=== PATIENT | female | born 1930 | race Hispanic/Latino ===

== ENCOUNTER 2019-07-19 19:23 | Inpatient (IN) | payer OTHER ==
[~2019-07-19] VITALS: Ht 162.6 cm; Wt 91.6 kg
[2019-07-19 01:00] VITALS: BP 157/70
[~2019-07-19 19:23] MED LIST: ASPIRIN325 MG PO; AUGMENTIN 875-1 EACH PO; CLOPIDOGREL75 MG PO; LANTUS INJ; METFORMIN HCL500 MG PO; METOPROLOL TART50 MG PO; NOVOLOG INJ; OMEPRAZOLE20 MG PO; PREDNISOLONE ACE5 ML OP; ZESTRIL20 MG PO
[2019-07-19] MEDS ORDERED: SODIUM CHLORIDE 0.9% 1000ML 1,000 ML IV STA (19:58)
[2019-07-19] MEDS ORDERED: IBUPROFEN 400 MG TAB PO STA (19:58)
[2019-07-19] MEDS ORDERED: IBUPROFEN 600 MG TAB ONE (20:10)
[2019-07-19] MEDS ORDERED: ACETAMINOPHEN 325 MG TAB ONE (20:11)
[2019-07-19] MEDS ORDERED: CEFTRIAXONE SOD 1 GM/NS 50 ML 50 ML IV ONE (20:15)
[2019-07-19] MEDS ORDERED: IBUPROFEN 600 MG TAB PO ONE (20:15)
[2019-07-19] MEDS ORDERED: ACETAMINOPHEN 325 MG TAB PO ONE (20:15)
[2019-07-19 20:22] LABS: BASOPHILS % 0.2 % (0.0-1.0); EOSINOPHILS % 0.2 % (0.0-6.0); HEMOGLOBIN 11.3 g/dL (12.0-16.0); LYMPHOCYTES # (AUTO) 1.2 (1.0-3.2); LYMPHOCYTES % 7.1 % (18.0-39.1); MEAN CORPUSCULAR HEMOGLOBIN 28.8 pg (28-32); MEAN CORPUSCULAR HGB CONC 32.3 g/dL (31-35); MEAN CORPUSCULAR VOLUME 89.3 fL (81-99); NEUTROPHILS # (AUTO) 14.3 (2.1-6.9); PLATELET COUNT 271 x10e3/uL (140-360); RED BLOOD COUNT 3.92 x10e6/uL (3.6-5.1)
[2019-07-19 20:32] LABS: INR 0.92; PROTHROMBIN TIME 12.8 seconds (11.9-14.5)
[2019-07-19 20:33] LABS: PARTIAL THROMBOPLASTIN TIME 28.1 seconds (23.8-35.5)
[2019-07-19 20:43] LABS: ALBUMIN 3.3 g/dL (3.5-5.0); ALBUMIN/GLOBULIN RATIO 0.8 (0.8-2.0); ANION GAP 13.2 mmol/L (8-16); CALCIUM 9.3 mg/dL (8.4-10.2); CREATININE, SERUM 0.94 mg/dL (0.57-1.11); MAGNESIUM 1.7 MG/DL (1.3-2.1); POTASSIUM 4.2 mmol/L (3.5-5.1)
[2019-07-19 20:50] LABS: B-TYPE NATRIURETIC PEPTIDE2 643.9 pg/mL (0-100); CREATINE KINASE MB 2.5 ng/mL (0-5.0)
[2019-07-19 21:03] LABS: BILIRUBIN,URINE NEGATIVE (NEGATIVE); CLARITY,URINE SL CLOUDY (CLEAR); COLOR,URINE YELLOW (YELLOW); KETONES,URINE NEGATIVE (NEGATIVE); LEUKOCYTE ESTERASE ,URINE NEGATIVE (NEGATIVE); NITRITE,URINE NEGATIVE (NEGATIVE); PROTEIN,URINE DIPSTICK 2+ (NEGATIVE); URINE UROBILINOGEN 0.2 mg/dL (0.2 - 1)
[2019-07-19 21:16] LABS: BACTERIA,URINE MODERATE /HPF; EPITHELIAL CELLS,URINE FEW /LPF
[2019-07-19] MEDS ORDERED: DEXTROSE 50% SYRINGE 50 ML IV PRN (22:00)
--- NOTE | 2019-07-19 23:08 | NUR ---
PT GIVEN TURKEY SANDWICH AND DIET LEMON-SHOSHONE-PAIUTE SODA, TOLERATING WELL.
--- NOTE | 2019-07-19 23:26 | Diagnostic Imaging Report ---
EXAMINATION: CHEST SINGLE (PORTABLE) INDICATION: Sick, weak COMPARISON: Chest radiograph 07/06/2016 FINDINGS: AP view TUBES and LINES: None. LUNGS: Lungs are well inflated. Subtle increased conspicuity of lung markings. Pulmonary vascular congestion. No consolidations. PLEURA: No pleural effusion or pneumothorax. HEART AND MEDIASTINUM: Cardiac size is mildly enlarged. There are atherosclerotic calcifications within the aorta. BONES AND SOFT TISSUES: No acute osseous lesion. Soft tissues are unremarkable. Degenerative changes in the shoulders. UPPER ABDOMEN: No free air under the diaphragm. IMPRESSION: Mild cardiomegaly and pulmonary vascular congestion. Possible mild pulmonary interstitial edema. Signed by: Jacques Malone DO on 07/19/2019 11:22 PM
[2019-07-20] VITALS (8 sets, daily range): BP systolic 157–215; BP diastolic 51–91
[2019-07-20] MEDS ORDERED: ACETAMINOPHEN 325 MG TAB PO PRN (00:15)
--- NOTE | 2019-07-20 01:00 | NUR ---
PATIENT RECEIVE FROM ER. PATIENT IS AAOX3, RESP EVEN AND UNLABORED. NO ACUTE DISTRESS NOTED. PATIENT IS BLIND IN LEFT EYE. ORIENTED TO ROOM. FAMILY AT BED SIDE. TELE IN PLACE. CALL LIGHT WITHIN REACH. INSTRUCT TO CALL FOR ASSISTANCE. BED LOW/LOCKED. CONTINUE TO MONITOR CLOSELY
[2019-07-20 05:58] LABS: CREATINE KINASE MB 4.4 ng/mL (0-5.0)
[2019-07-20] MEDS: INSULIN REGULAR, HUMAN 100 UNIT/1 ML 3ML VIAL SQ SCH ×4 (07:30→20:10)
--- NOTE | 2019-07-20 07:30 | NUR ---
Received patient this morning and a/ox3, no resp distress, call light within reach and will monitor.
--- NOTE | 2019-07-20 08:12 | NUR ---
Received patient this morning and called attending and obtained treatment procedures, antibiotics, diuretics, renew home meds, will monitor.
[2019-07-20 08:26] LABS: BASOPHILS % 0.3 % (0.0-1.0); EOSINOPHILS # (AUTO) 0.1 (0.0-0.4); EOSINOPHILS % 0.5 % (0.0-6.0); HEMATOCRIT 32.8 % (34.2-44.1); HEMOGLOBIN 10.2 g/dL (12.0-16.0); LYMPHOCYTES # (AUTO) 1.3 (1.0-3.2); LYMPHOCYTES % 12.2 % (18.0-39.1); MEAN CORPUSCULAR HEMOGLOBIN 28.5 pg (28-32); MEAN CORPUSCULAR HGB CONC 31.1 g/dL (31-35); MEAN CORPUSCULAR VOLUME 91.6 fL (81-99); MONOCYTES # (AUTO) 0.8 (0.2-0.8); MONOCYTES % 7.3 % (4.4-11.3); NEUTROPHILS # (AUTO) 8.2 (2.1-6.9); NEUTROPHILS % 79.4 % (38.7-80.0); PLATELET COUNT 250 x10e3/uL (140-360); RED BLOOD COUNT 3.58 x10e6/uL (3.6-5.1); RED CELL DISTRIBUTION WIDTH 15.1 % (11.7-14.4)
[2019-07-20] MEDS ORDERED: SODIUM CHLORIDE 0.9% 250ML 250 ML ONE (08:30)
[2019-07-20 08:40] LABS: CALCIUM 8.6 mg/dL (8.4-10.2); CREATININE, SERUM 1.15 mg/dL (0.57-1.11)
[2019-07-20] MEDS ORDERED: CEFEPIME HCL 1 GM VIAL IV SCH (09:00)
[2019-07-20] MEDS ORDERED: FUROSEMIDE INJ 10 MG/ML 4 ML VIAL IV ONE (09:00)
[2019-07-20] MEDS: CEFEPIME 1GM/NS 0.9% 50 ML 50 ML IV SCH ×2 (09:18→16:30)
[2019-07-20] MEDS: METOPROLOL TARTRATE 50 MG TAB PO SCH (09:18)
[2019-07-20] MEDS: CLOPIDOGREL BISULFATE 75 MG TAB PO SCH (09:19)
[2019-07-20] MEDS: LISINOPRIL 20 MG TAB PO SCH (09:19)
[2019-07-20] MEDS: INSULIN GLARGINE 100 UNITS/ML VIAL SC SCH (09:19)
[2019-07-20 13:14] LABS: CREATINE KINASE MB 7.5 ng/mL (0-5.0)
[2019-07-20] MEDS: ENOXAPARIN 30 MG/0.3 ML SYR SC SCH (16:30)
[2019-07-20] MEDS ORDERED: HYDRALAZINE HCL 20 MG/ML VIAL IV PRN (19:45)
--- NOTE | 2019-07-20 19:45 | NUR ---
NOTIFIED DR STEWART HIGH BP. PATIENT IS ASYMPTOMATIC AT THIS TIME. NEW ORDER RECEIVED
[2019-07-20] MEDS ORDERED: NIFEDIPINE CR 30 MG TAB PO ONE (20:30)
--- NOTE | 2019-07-20 21:06 | History and Physical ---
CHIEF COMPLAINT: Dysuria, not feeling well, subjective fever. HISTORY OF PRESENT ILLNESS: An 89-year-old female comes into the emergency room with complaints of "not feeling well." She reports that her air condition at times was warm and then it was cold and she felt fevers and chills at home. She also reports questionable dysuria. No cough, no congestion. Denies chest pain or any palpitations. The patient came into the emergency room to be further evaluated and found to have a UTI on examination. Chest x-ray consistent with pulmonary edema, but no evidence of any community-acquired pneumonia. The patient was stable during my evaluation. Reviewed case with nursing staff. REVIEW OF SYSTEMS: 1. Pertinent positives: Positive dysuria and subjective fever. 2. Pertinent negatives: Denies any chest pain, palpitations, nausea, vomiting, diarrhea, hematuria, frequency, urgency, lightheadedness, dizziness, abdominal pain, headaches, shortness of breath, cough, congestion, or any other complaints. 3. The rest of the 14-point review of systems have been reviewed with the patient and are negative. ALLERGIES: NO KNOWN DRUG ALLERGIES. HOME MEDICATIONS: 1. Metformin 500 mg b.i.d. 2. NovoLog t.i.d. 3. Plavix. 4. Lisinopril. 5. Metoprolol. 6. Lantus. PAST MEDICAL HISTORY: 1. Type 2 diabetes. 2. Hypertension. 3. Morbidly obese. PAST SURGICAL HISTORY: Reports none. FAMILY HISTORY: Hypertension and diabetes. SOCIAL HISTORY: No drugs or alcohol. Does not smoke. Good social support. , has children. PHYSICAL EXAMINATION: VITAL SIGNS: Temperature is 96.3, pulse 52, respiratory rate is 19, blood pressure 162/72, pulse ox 99% on 2 L nasal cannula. GENERAL: Not in acute distress. Alert and oriented x3. Cooperative on examination. HEENT: Head; normocephalic, atraumatic. Eyes; pupils are equal, round, and reactive to light bilaterally. Extraocular movements intact bilaterally. Throat; no evidence of erythema or exudates in the posterior pharynx. Has poor dentition. NECK: Supple. Good range of motion. PULMONARY: Clear to auscultation bilaterally. No wheezing, no rales, no rhonchi, no crackles appreciated. CARDIOVASCULAR: Positive S1 and S2. No murmurs, rubs, or gallops appreciated. ABDOMEN: Soft, nondistended, and nontender to palpation. Bowel sounds present. MUSCULOSKELETAL: Strength is 5/5 throughout. No evidence of any muscle deficits on examination. No weakness appreciated. NEUROLOGIC: Cranial nerve II through XII are grossly intact. No evidence of any neurological deficits on exam. SKIN: Intact. Warm to touch. Good cap refill. PSYCHIATRIC: Normal affect and mood. EXTREMITIES: No edema. Good range of motion throughout. LABORATORY FINDINGS: White count 10.3, hemoglobin 10.2, hematocrit 32, and platelets of 250. Coagulation, PT 12, INR 0.92, PTT 28. Chemistries: Sodium 138, potassium 4, chloride 102, bicarb 27, anion gap of 13, BUN 25, and creatinine 1.1, glucose 162. Calcium is 8.6. LFTs are normal x3. Lipase level was 15. Albumin was 3.3. Urinalysis concerning for UTI. MICROBIOLOGY: Urine culture, gram-negative bacilli. Blood cultures x2, no growth to date. Chest x-ray shows mild cardiomegaly with pulmonary vascular congestion, possible mild pulmonary interstitial edema. IMPRESSION: 1. Sepsis with leukocytosis and fever 103.6, likely due to underlying urinary tract infection. 2. Type 2 diabetes. 3. Morbid obesity. 4. Hypertension. PLAN: At this time, blood and urine cultures collected. IV antibiotics. Resume same home medications include antihypertensives. Start on insulin sliding scale, long-acting Lantus. Diabetic diet. Her vitals are stable. Get a.m. labs. Monitor overnight and follow the cultures. MD MARÍA ELENA Teixeira/MODL /[id number]
[2019-07-21] VITALS (8 sets, daily range): BP systolic 110–164; BP diastolic 54–90
[2019-07-21] MEDS: CEFEPIME 1GM/NS 0.9% 50 ML 50 ML IV SCH ×3 (01:24→17:08)
[2019-07-21] MEDS: INSULIN REGULAR, HUMAN 100 UNIT/1 ML 3ML VIAL SQ SCH ×4 (07:30→20:45)
[2019-07-21] MEDS: CLOPIDOGREL BISULFATE 75 MG TAB PO SCH (08:28)
[2019-07-21] MEDS: LISINOPRIL 20 MG TAB PO SCH (08:29)
[2019-07-21] MEDS: METOPROLOL TARTRATE 50 MG TAB PO SCH (08:29)
[2019-07-21] MEDS: NIFEDIPINE CR 30 MG TAB PO SCH (08:29)
[2019-07-21] MEDS: INSULIN GLARGINE 100 UNITS/ML VIAL SC SCH (09:21)
--- NOTE | 2019-07-21 16:27 | NUR ---
Patient seen by attending and orders in place, home health eval for PT, PT orders in place, Lasix x1 dose, wean off oxygen if not able to tolerate, complete O2 eval but will monitor. Patient now on RA, will monitor and no c/o pains.
[2019-07-21] MEDS ORDERED: FUROSEMIDE INJ 10 MG/ML 2 ML VIAL IV ONE (17:00)
[2019-07-21] MEDS: ENOXAPARIN 30 MG/0.3 ML SYR SC SCH (17:08)
--- NOTE | 2019-07-21 19:02 | NUR ---
Patient dasat on her oxygen on RA to 85, oxygen 2L re-applied and at 95%, orders in place for home O2 eval.
[2019-07-22] VITALS (9 sets, daily range): BP systolic 127–153; BP diastolic 63–74
[2019-07-22] MEDS: CEFEPIME 1GM/NS 0.9% 50 ML 50 ML IV SCH ×3 (01:16→17:16)
[2019-07-22 05:11] LABS: BASOPHILS % 0.3 % (0.0-1.0); EOSINOPHILS # (AUTO) 0.2 (0.0-0.4); EOSINOPHILS % 2.1 % (0.0-6.0); HEMATOCRIT 33.4 % (34.2-44.1); HEMOGLOBIN 10.6 g/dL (12.0-16.0); LYMPHOCYTES # (AUTO) 1.3 (1.0-3.2); LYMPHOCYTES % 13.7 % (18.0-39.1); MEAN CORPUSCULAR HEMOGLOBIN 28.3 pg (28-32); MEAN CORPUSCULAR HGB CONC 31.7 g/dL (31-35); MEAN CORPUSCULAR VOLUME 89.1 fL (81-99); MONOCYTES % 10.6 % (4.4-11.3); NEUTROPHILS % 72.9 % (38.7-80.0); PLATELET COUNT 250 x10e3/uL (140-360); RED BLOOD COUNT 3.75 x10e6/uL (3.6-5.1); RED CELL DISTRIBUTION WIDTH 14.7 % (11.7-14.4)
[2019-07-22 05:29] LABS: ANION GAP 11.8 mmol/L (8-16); CREATININE, SERUM 0.92 mg/dL (0.57-1.11); POTASSIUM 3.8 mmol/L (3.5-5.1)
[2019-07-22] MEDS: INSULIN REGULAR, HUMAN 100 UNIT/1 ML 3ML VIAL SQ SCH ×4 (07:30→21:20)
[2019-07-22] MEDS: NIFEDIPINE CR 30 MG TAB PO SCH (08:17)
[2019-07-22] MEDS: CLOPIDOGREL BISULFATE 75 MG TAB PO SCH (08:17)
[2019-07-22] MEDS: METOPROLOL TARTRATE 50 MG TAB PO SCH (08:17)
[2019-07-22] MEDS: LISINOPRIL 20 MG TAB PO SCH (08:17)
[2019-07-22] MEDS: INSULIN GLARGINE 100 UNITS/ML VIAL SC SCH (08:18)
--- NOTE | 2019-07-22 08:48 | Diagnostic Imaging Report ---
EXAMINATION: CHEST SINGLE (PORTABLE) INDICATION: Shortness of breath COMPARISON: Multiple prior chest radiographs, most recently of 07/19/2019 FINDINGS: LINES/TUBES:EKG leads overlie the chest. LUNGS:The lung volumes are low. There is perihilar fullness and indistinctness of the pulmonary vasculature. Patchy opacity at the left lung base. PLEURA:No pleural effusion or pneumothorax. MEDIASTINUM:Cardiomediastinal silhouette is stably enlarged. BONES/SOFT TISSUES:No acute osseous injury. ABDOMEN:No free air under the diaphragm. IMPRESSION: Mild pulmonary edema and cardiomegaly, not significantly changed from 07/19/2019. Patchy opacity at the left lung base most likely represents subsegmental atelectasis however superimposed aspiration or pneumonia could have a similar appearance in the proper clinical setting. Signed by: Guerline Galdamez MD on 07/22/2019 8:45 AM
--- NOTE | 2019-07-22 11:30 | NUR ---
Cm to pt bedside to discuss order for home health. Pt stated she would prefer for CM to return when her gets here. CM's business card given to pt. She will call when her arrives.
[2019-07-22] MEDS ORDERED: POTASSIUM CHLORIDE 20 MEQ TAB CR PO ONE (13:41)
[2019-07-22] MEDS ORDERED: FUROSEMIDE INJ 10 MG/ML 2 ML VIAL IV ONE (13:45)
--- NOTE | 2019-07-22 14:04 | Progress Note ---
DATE: 07/22/2019 Medicine Progress Note SUBJECTIVE: The patient is doing well today with no complaints. The only issue is that she was desatting on with a low oxygen saturation. It seems like she needs home O2. I will go ahead and consult with Pulmonary to further evaluate and treat. PHYSICAL EXAMINATION: VITAL SIGNS: Temperature 97, pulse 61, respiratory rate is 21, blood pressure 142/65, and pulse ox 98% on 2 L nasal cannula. GENERAL: Not in acute distress. Alert and oriented x3. Cooperative on examination. HEENT: Head; normocephalic, atraumatic. Eyes; pupils are equal, round, and reactive to light bilaterally. Extraocular movements intact bilaterally. Throat; no evidence of erythema or exudates in the posterior pharynx. Has poor dentition. NECK: Supple. Good range of motion. PULMONARY: Clear to auscultation bilaterally. No wheezing, no rales, no rhonchi, no crackles appreciated. CARDIOVASCULAR: Positive S1 and S2. No murmurs, rubs, or gallops appreciated. ABDOMEN: Soft, nondistended, and nontender to palpation. Bowel sounds present. MUSCULOSKELETAL: Strength is 5/5 throughout. No evidence of any muscle deficits on examination. No weakness appreciated. NEUROLOGIC: Cranial nerves II through XII grossly intact. No evidence of any neurological deficits on exam. SKIN: Intact. Warm to touch. Good cap refill. PSYCHIATRIC: Normal affect and mood. EXTREMITIES: No edema. Good range of motion throughout. LABORATORY FINDINGS: Show white count 9.6, hemoglobin 10.6, hematocrit is 33, and platelets of 250. Chemistry; sodium 136, potassium 3.8, chloride 100, bicarb 28, anion gap of 11, BUN is 21, creatinine is 0.92, glucose is 100, and calcium 9. MICROBIOLOGY: Urine culture noted to be E. coli, sensitive to cephalosporins, in which she will be discharged eventually on Omnicef. Blood cultures, no growth to date greater than 48 hours. IMAGING STUDIES: Chest x-ray from this morning shows patchy opacity at the left lung base, most likely represent subsegmental atelectasis or superimposed aspiration pneumonia, could have a similar appearance in appropriate clinical setting. IMPRESSION: 1. Sepsis with leukocytosis with fever, likely due to underlying urinary tract infection. 2. Type 2 diabetes. 3. Morbid obesity. 4. Hypertension. 5. Oxygen desaturations. PLAN: At this time, blood cultures were negative to date. Urine culture noted. We will continue with IV antibiotics. In terms of her hypoxia, on 2 L nasal cannula and unable to wean off, we will go ahead and get a Pulmonary consultation to come further evaluate and treat. It could be from maybe underlying pneumonia as a possibility because chest x-ray comments that, but she is on IV antibiotics. No fever now. Her white count is improved. We will get a.m. labs. Monitor the cultures. Get final recommendations by Pulmonary once evaluated by her, otherwise discharge in the next 1 to 2 days if she is off oxygen soon. We may even need to arrange for oxygen for home. MD MARÍA ELENA Teixeira/DANELLE /[id number]
--- NOTE | 2019-07-22 15:40 | NUR ---
Spoke to pt, pt's and pt's daughter at bedside regarding home health order. Pt directs CM to speak to her daughter Lesly Chavez [phone]. Pt is agreeable to home health. States to use any company that takes her insurance. Choice letter signed for [facility] and [facility]. Signed letter placed in chart. Copy to pt's daughter. Discussed IMM letter. They verbalized understanding. Signed copy placed in chart. Copy to daughter. Also spoke to pt and family regarding possible need for home oxygen. Home O2 eval was done today and pt O2 sat dropped to 85% on exertion. Pending pulmonary MD's round for qualifying diagnosis for home O2. In case home O2 needed on discharge, choice letter signed for [facility] and placed in front of chart. Copy to pt's daughter.
[2019-07-22] MEDS: AZITHROMYCIN 500MG/NS 250 ML 250 ML IV SCH (16:01)
--- NOTE | 2019-07-22 16:46 | Diagnostic Imaging Report ---
EXAM: CT Chest WITHOUT intravenous contrast 07/22/2019 1:32 PM INDICATION: Cough, concern for pneumonia COMPARISON: Multiple chest radiographs most recently of 07/22/2019 TECHNIQUE: Chest was scanned utilizing a multidetector helical scanner from the lung apex through the level of the adrenal glands without administration of IV contrast. Coronal and sagittal reformations were obtained. Routine protocol was performed. IV CONTRAST: None RADIATION DOSE: Total DLP: 1494.5 mGy*cm. Dose modulation, iterative reconstruction, and/or weight based adjustment of the mA/kV was utilized to reduce the radiation dose to as low as reasonably achievable. COMPLICATIONS: None FINDINGS: LINES/ TUBES: None. LUNGS AND AIRWAYS: The central airways are patent. The lungs are hyperinflated. Mild diffuse bronchial wall thickening. Most notably in the lower lobes and right middle lobe, there is predominantly peripheral increased reticulation and scattered groundglass opacities with some areas of immediate subpleural sparing. This persists on inspiratory and expiratory views and on the prone images. No honeycombing. No focal consolidation. Mild interlobular septal thickening can be seen with mild interstitial edema. No substantial air trapping seen on the current expiratory views. PLEURA: The pleural spaces are clear. HEART AND MEDIASTINUM: The thyroid gland is normal. No supraclavicular, axillary, mediastinal, or hilar lymphadenopathy. Multichamber cardiomegaly. Extensive mitral valve calcifications. Athetotic calcifications of the coronary arteries and aorta and major branches. No pericardial effusion. UPPER ABDOMEN: Limited noncontrast enhanced images of the upper abdomen demonstrate no focal abnormality in the partially visualized liver, spleen, kidneys, adrenals, or pancreas. Marked atherosclerotic calcifications of the mesenteric branches most notably the splenic artery. BONES: The visualized bony thorax is within normal limits. SOFT TISSUES: No acute osseous injury. No suspicious lytic or blastic lesions. Mild degenerative changes of the visualized spine. IMPRESSION: Hyperinflated lungs. Bilateral lower lobe predominantly peripheral reticulations and scattered groundglass opacities with some areas of immediate subpleural sparing are suggestive of interstitial lung disease in an NSIP pattern. Mild interstitial pulmonary edema. Multichamber cardiomegaly. Atherosclerotic arterial calcifications including of the coronary arteries. Signed by: Guerline Galdamez MD on 07/22/2019 4:43 PM
[2019-07-22] MEDS ORDERED: SODIUM CHLORIDE 0.9% 250ML 250 ML ONE (17:12)
[2019-07-22] MEDS: ENOXAPARIN 30 MG/0.3 ML SYR SC SCH (17:16)
--- NOTE | 2019-07-22 20:03 | NUR ---
Referral for home health faxed to [facility] at [phone]. .
--- NOTE | 2019-07-22 23:08 | NUR ---
Pulmonary [id number] Thanks
[2019-07-23] VITALS (9 sets, daily range): BP systolic 128–158; BP diastolic 60–98
[2019-07-23] MEDS: CEFEPIME 1GM/NS 0.9% 50 ML 50 ML IV SCH ×3 (00:11→16:14)
--- NOTE | 2019-07-23 06:58 | Consultation ---
DATE OF CONSULTATION: 07/22/2019 Pulmonary Medicine Consult Referring physician REASON FOR REFERRAL: Hypoxemia. HISTORY OF PRESENT ILLNESS: Ms. Freedman is a pleasant 89-year-old female with hypoxemia. The patient presented to the emergency room on July 19, 2019. She is not feeling well and have subjective fevers. Along the emergency room findings, the white count was [address], urinalysis with 6 to 10 white cells. Eventually, blood cultures were negative at 72 hours x2, but urine culture grew a partially sensitive E coli greater than 100,000 colony-forming units. The patient additionally had a chest x-ray with scant venous hyperemia versus pneumonitis. The patient denies any phlegm. Denies any extensive coughing. There is no history of any asthma, no allergies. There is mild GERD. She is not on any home oxygen. Now using chronic inhalers. The patient with a 2-house exercise tolerance. Repeat chest x-ray demonstrated persistent infiltrates. Room air FiO2 with saturation 85% and I am consulted. PAST MEDICAL HISTORY: Diabetes, hypertension, mild GERD, obese, BMI 34.9. Additional coronary artery disease, status post 2 stents. MEDICATIONS: Medication list reviewed per the chart record. ALLERGIES: NO KNOWN DRUG ALLERGIES. SOCIAL HISTORY: No smoking. No drinking. No drugs. The patient worked in agriculture for many years and currently lives with her and still remains independent in everything except she never really drove a car. FAMILY HISTORY: Noncontributory. REVIEW OF SYSTEMS: GENERAL: No weight changes. OPHTHALMOLOGIC: No double vision. ENT: No frequent nosebleeds. ENDOCRINE: No thyroid disease. CARDIAC: No heart attack stated. PULMONARY: There is no COPD. GI: No constipation. : No blood in the urine. DERMATOLOGIC: No rash. MUSCULOSKELETAL: There is mild arthritis. NEUROLOGIC: No seizures. HEMATOLOGIC: There is no lupus. PHYSICAL EXAMINATION: VITAL SIGNS: The patient is afebrile with the highest temperature on admit was 103.6. HEENT: Normocephalic, atraumatic. GENERAL: comfortable in bed, talking. NECK: Supple. Throat midline. LUNGS: Bilateral air entry, limited effort. CARDIAC: Regular. No murmurs, rubs, or gallops. ABDOMINAL: Soft and nontender. EXTREMITIES: No clubbing. No cyanosis. No edema. INTEGUMENT: No rash. No purpura. LABORATORY DATA: Include white count come down to 10, hematocrit 33, platelets 250. Chemistry: Potassium 4.2, BUN 21, creatinine 0.94. Lactic acid 7.7, magnesium 1.7. LFTs mostly unremarkable with albumin 3.3 and globulin 3.9. IMPRESSION AND PLAN: 1. Abnormal chest radiography, ground-glass interstitial opacities and hyperemia. Possible fluid overload, BNP 644. 2. Bilateral pulmonary opacities, possible pneumonia. However, timeline for possible pneumonia is indiscernible based on the history that she gave. 3. Febrile syndrome, sepsis. 4. Urinary tract infection. 5. Diabetes. 6. Morbid obesity. 7. Hypertension. 8. Mild gastroesophageal reflux disease. 9. Hypoxemia. As the patient had Lasix yesterday without substantial improvement in radiography, there is substantial chance of pneumonia being present. The patient has no timeline that we can tell from her history. Therefore, we will check a CT chest on early basis to try to clarify. Otherwise, aggressive PT and OT. Oxygen supplement as needed. Antibiotics will be extended to appropriate for pneumonia as well as UTI. Continue to treat GERD, which she reports doing now. Bronchodilators as needed. Thank you very much, Dr. Amaral for allowing me the chance to participate in the care of Ms. Freedman. Please do not hesitate to contact me if I can help in any way. MD TORREY Mcmanus/DANELLE /[id number]
[2019-07-23] MEDS: INSULIN REGULAR, HUMAN 100 UNIT/1 ML 3ML VIAL SQ SCH ×4 (07:30→20:22)
[2019-07-23] MEDS: METOPROLOL TARTRATE 50 MG TAB PO SCH (08:08)
[2019-07-23] MEDS: MULTIVITAMINS/MINERALS TAB PO SCH (08:08)
[2019-07-23] MEDS: CLOPIDOGREL BISULFATE 75 MG TAB PO SCH (08:08)
[2019-07-23] MEDS: LISINOPRIL 20 MG TAB PO SCH (08:08)
[2019-07-23] MEDS: INSULIN GLARGINE 100 UNITS/ML VIAL SC SCH (08:09)
[2019-07-23] MEDS: NIFEDIPINE CR 30 MG TAB PO SCH (08:09)
[2019-07-23] MEDS: AZITHROMYCIN 500MG/NS 250 ML 250 ML IV SCH (12:39)
--- NOTE | 2019-07-23 14:26 | Progress Note ---
DATE: 07/23/2019 Medicine Progress Note SUBJECTIVE: The patient is doing well today with no other complaints. I did discuss the plan of care with the patient's at bedside. She still requires oxygen at bedside. I did review the CT findings with the and the patient at bedside. PHYSICAL EXAMINATION: VITAL SIGNS: Temperature 96.9, pulse 69, respiratory rate is 19, blood pressure is 132/63, and pulse ox 99% on 2 L nasal cannula. GENERAL: Not in acute distress. Alert and oriented x3. Cooperative on examination. HEENT: Head; normocephalic, atraumatic. Eyes; pupils are equal, round, and reactive to light bilaterally. Extraocular movements intact bilaterally. Throat; no evidence of erythema or exudates in the posterior pharynx. Has poor dentition. NECK: Supple. Good range of motion. PULMONARY: Clear to auscultation bilaterally. No wheezing, no rales, no rhonchi, no crackles appreciated. CARDIOVASCULAR: Positive S1 and S2. No murmurs, rubs, or gallops appreciated. ABDOMEN: Soft, nondistended, and nontender to palpation. Bowel sounds present. MUSCULOSKELETAL: Strength is 5/5 throughout. No evidence of any muscle deficits on examination. No weakness appreciated. NEUROLOGIC: Cranial nerves II through XII grossly intact. No evidence of any neurological deficits on exam. SKIN: Intact. Warm to touch. Good cap refill. PSYCHIATRIC: Normal affect and mood. EXTREMITIES: No edema. Good range of motion throughout. LABORATORY FINDINGS: Show white count 9.6, hemoglobin 10.6, hematocrit is 33, and platelets of 250. Chemistries reviewed and stable. IMAGE STUDIES: CT chest with IV contrast: Results show bilateral lower lobe predominant peripheral reticulations and scattered ground-glass opacities with some areas of intermediate subpleural sparing are suggestive of interstitial lung disease in an NSIP pattern. There is also mild interstitial pulmonary edema. Multi chamber cardiomegaly. IMPRESSION: 1. Sepsis with leukocytosis with fever, likely due to underlying urinary tract infection. 2. Probably community-acquired pneumonia. 3. Hypoxia secondary to presumed to be interstitial lung disease. 4. Type 2 diabetes. 5. Morbid obesity. 6. Hypertension. PLAN: At this time, urine cultures were noted, on IV antibiotics. IV azithromycin added by Pulmonary for concerns for community-acquired pneumonia. We will get morning labs. Pulmonary is following as well. CT chest, IV contrast noted, concerns for underlying interstitial lung disease, but unknown etiology. Immunology and serologies have been ordered by Pulmonary. I did discuss the plan of care with the patient, the patient's , and nursing staff. We are awaiting for home O2. Likely if the oxygen is in range and cleared by Pulmonary, she can be discharged home tomorrow with outpatient followup with the telephone order clerk. The patient will be discharged on oral antibiotics as well. Otherwise, the patient is doing well, stable at baseline with no other complaints. I answered all the questions what the patient and the patient's had. They verbalized understanding and agreed with plan of care. MD MARÍA ELENA Teixeira/DANELLE /[id number]
[2019-07-23] MEDS: ENOXAPARIN 30 MG/0.3 ML SYR SC SCH (16:14)
--- NOTE | 2019-07-23 19:18 | NUR ---
Bedside report and walking rounds complete. Pt A&O, resting in bed and in no apparent distress. Pt on O2 2L NC and tele. All safety measures ensured and pt call [place] near. Pt is legally blind in left eye. Pt advised to call for assistance and will check on pt periodically for anything needed. Pt family at bedside.
--- NOTE | 2019-07-23 23:51 | NUR ---
PULMONARY MEDICINE DATE OF ENCOUNTER: 07/23/2019 SUBJECTIVE: Patient is able to mobilize today. Her breathing is stable. She still on oxygen per nasal cannula. I discussed CT findings with patient, , and attending. REVIEW OF SYSTEMS: nO HEADACHES, NO BLEEDING PHYSICAL EXAMINATION: VITAL SIGNS: reviewed per electronic record. HEENT: Normocephalic, atraumatic. GENERAL: comfortable in bed, talking. NECK: Supple. Throat midline. LUNGS: Bilateral air entry, limited effort. CARDIAC: Regular. No murmurs, rubs, or gallops. ABDOMINAL: Soft and nontender. EXTREMITIES: No clubbing. No cyanosis. No edema. INTEGUMENT: No rash. No purpura. LABORATORY DATA: 2.8 potassium, BUN 21, creatinine 0.92. 9.6 white count, 33 hematocrit, 250 platelets. IMPRESSION AND PLAN: 1. Abnormal chest radiography, bilateral mild subpleural interstitial reticular opacities/nodules. Possible old viral pneumonia. Cannot rule out active interstitial lung disease syndrome (NSIP), old environmental exposures, other. 2. Febrile syndrome, sepsis. Suggested UTI. No rai pneumonia suggested, at most could be a URI 4. Urinary tract infection. 5. Diabetes. 6. Morbid obesity. 7. Hypertension. 8. Mild gastroesophageal reflux disease. 9. Hypoxemia. home oxygen evaluation Mobilize the patient, PT/OT Patient will need outpatient pulmonary function testing History requires intermittent computed tomography evaluations of chest, Outpatient Bronchodilators as needed. Thank you very much, Dr. Amaral for allowing me the chance to participate in the care of Ms. Freedman. Please do not hesitate to contact me if I can help in any way.
[2019-07-24] VITALS (7 sets, daily range): BP systolic 138–162; BP diastolic 56–86
[2019-07-24] MEDS: CEFEPIME 1GM/NS 0.9% 50 ML 50 ML IV SCH ×3 (00:41→16:38)
[2019-07-24 06:41] LABS: BASOPHILS # (AUTO) 0.1 (0.0-0.1); BASOPHILS % 0.7 % (0.0-1.0); EOSINOPHILS # (AUTO) 0.4 (0.0-0.4); EOSINOPHILS % 4.7 % (0.0-6.0); HEMATOCRIT 33.3 % (34.2-44.1); HEMOGLOBIN 10.3 g/dL (12.0-16.0); LYMPHOCYTES # (AUTO) 1.4 (1.0-3.2); MEAN CORPUSCULAR HEMOGLOBIN 28.4 pg (28-32); MEAN CORPUSCULAR HGB CONC 30.9 g/dL (31-35); MEAN CORPUSCULAR VOLUME 91.7 fL (81-99); MONOCYTES # (AUTO) 0.9 (0.2-0.8); MONOCYTES % 12.3 % (4.4-11.3); NEUTROPHILS # (AUTO) 4.9 (2.1-6.9); PLATELET COUNT 282 x10e3/uL (140-360); RED BLOOD COUNT 3.63 x10e6/uL (3.6-5.1); RED CELL DISTRIBUTION WIDTH 14.5 % (11.7-14.4)
[2019-07-24 07:04] LABS: ANION GAP 10.9 mmol/L (8-16); CREATININE, SERUM 0.98 mg/dL (0.57-1.11); POTASSIUM 4.9 mmol/L (3.5-5.1)
--- NOTE | 2019-07-24 07:05 | NUR ---
Bedside report/Walking rounds complete with day shift RN.
[2019-07-24] MEDS: INSULIN REGULAR, HUMAN 100 UNIT/1 ML 3ML VIAL SQ SCH ×4 (07:30→20:40)
[2019-07-24] MEDS: CLOPIDOGREL BISULFATE 75 MG TAB PO SCH (08:12)
[2019-07-24] MEDS: LISINOPRIL 20 MG TAB PO SCH (08:12)
[2019-07-24] MEDS: NIFEDIPINE CR 30 MG TAB PO SCH (08:12)
[2019-07-24] MEDS: METOPROLOL TARTRATE 50 MG TAB PO SCH (08:12)
[2019-07-24] MEDS: MULTIVITAMINS/MINERALS TAB PO SCH (08:12)
[2019-07-24] MEDS: INSULIN GLARGINE 100 UNITS/ML VIAL SC SCH (09:00)
--- NOTE | 2019-07-24 09:14 | NUR ---
Received communication thru fax from Neisha Castillo from [facility] that they are unable to accept pt. Home Health referral faxed to [facility] Evelyn Landers with [facility] was notified of referral.
--- NOTE | 2019-07-24 12:35 | Progress Note ---
DATE: 07/24/2019 Medicine Progress Note SUBJECTIVE: The patient is doing well today with no complaints. We are now waiting for home O2 as she really needs it. She desaturates without oxygen. She is oxygen dependent now due to her underlying interstitial lung disease, it seems based on imaging studies. PHYSICAL EXAMINATION: VITAL SIGNS: Temperature is 98.2, pulse 74, respiratory rate is 20, blood pressure is 150/64, pulse ox is 100% on 2 L nasal cannula. GENERAL: Not in acute distress. Alert and oriented x3. Cooperative on examination. HEENT: Head; normocephalic, atraumatic. Eyes; pupils are equal, round, and reactive to light bilaterally. Extraocular movements are intact bilaterally. Throat; no evidence of erythema or exudates in the posterior pharynx. Has poor dentition. NECK: Supple. Good range of motion. PULMONARY: Clear to auscultation bilaterally. No wheezing, no rales, no rhonchi, no crackles appreciated. CARDIOVASCULAR: Positive S1 and S2. No murmurs, rubs, or gallops appreciated. ABDOMEN: Soft, nondistended, and nontender to palpation. Bowel sounds present. MUSCULOSKELETAL: Strength is 5/5 throughout. No evidence of any muscle deficits on examination. No weakness appreciated. NEUROLOGIC: Cranial nerves II through XII grossly intact. No evidence of any neurological deficits on exam. SKIN: Intact. Warm to touch. Good cap refill. PSYCHIATRIC: Normal affect and mood. EXTREMITIES: No edema. Good range of motion throughout. LABORATORY DATA: Lab findings show white count 7.6, hemoglobin 10.2, hematocrit 33, platelets of 282. Chemistries reviewed and stable. IMPRESSION: 1. Sepsis with leukocytosis with fever secondary to underlying urinary tract infection-resolved. 2. Community-acquired pneumonia. 3. Presumed interstitial lung disease. 4. Type 2 diabetes. 5. Morbid obesity. 6. Hypertension. PLAN: At this time, urine cultures were noted, which is sensitive to the IV antibiotic she is currently on. She is on IV azithromycin and Rocephin for Pulmonary recommendations. We are now working on home O2, once arranged the patient can be discharged to home. She can follow up with Pulmonary as an outpatient for further management and evaluation in relation to her likely new diagnosis of interstitial lung disease. Otherwise, we will continue with same plan of care. Monitor closely. Discussed with nursing staff. MD MARÍA ELENA Teixeira/DANELLE /[id number]
--- NOTE | 2019-07-24 12:52 | NUR ---
Home o2 eval was redone. Pt dropped to 87% on exertion. CM called and spoke to Rafael with [facility]. He states they are not in network. BRYCE called and spoke to Juan with [facility] who states that he can deliver portables today but will not be able to deliver concentrator since their office is closed due to the weather. BRYCE called and spoke to Ilana in the oxygen department at [facility]. She states that they would be able to deliver portables and concentrator today. Spoke to pt and at bedside and informed them that we need to set up home oxygen for pt. Informed them regarding [facility] and [facility] and they are fine with using [facility]. Choice letter signed and placed in chart. Copy to pt. Referral was faxed to [phone] .
[2019-07-24] MEDS: AZITHROMYCIN 500MG/NS 250 ML 250 ML IV SCH (15:25)
--- NOTE | 2019-07-24 15:43 | NUR ---
Spoke with Evelyn with [facility]. Pt has been accepted by [facility] but still pending insurance authorization.
[2019-07-24] MEDS: ENOXAPARIN 30 MG/0.3 ML SYR SC SCH (16:38)
--- NOTE | 2019-07-24 17:06 | NUR ---
Portable concentrator has been delivered to pt's bedside. Message left for Dr. Amaral informing him.
--- NOTE | 2019-07-24 17:35 | NUR ---
CM have not received response from Dr. Amaral regarding possible discharge. CM escalated to director medical writing Dr. España. Also informed CM director Norma Motta who left message for Dr. Amaral.
--- NOTE | 2019-07-24 18:26 | NUR ---
Pt is not able to have ride to be picked up in order to go home this evening. MD aware of pt not having ride. Will follow up with pt in the morning.
--- NOTE | 2019-07-24 19:20 | NUR ---
Patient received lying in bed. at bedside. AAO x 3. Patient had no complaints of pain. Respirations even and non-labored on 2L NC. Patient is legally blind in left eye. Safety measures implemented. Patient instructed to call for assistance when needed. Call light within reach.
--- NOTE | 2019-07-24 21:58 | NUR ---
PULMONARY MEDICINE DATE OF ENCOUNTER: 07/24/2019 SUBJECTIVE: Home oxygen evaluation done Order made Patient with stable symptoms d/w patient, d/w REVIEW OF SYSTEMS: No epistaxis, no double vision PHYSICAL EXAMINATION: VITAL SIGNS: reviewed per electronic record. HEENT: Normocephalic, atraumatic. GENERAL: comfortable in bed, talking. NECK: Supple. Throat midline. LUNGS: Bilateral air entry, limited effort. CARDIAC: Regular. No murmurs, rubs, or gallops. ABDOMINAL: Soft and nontender. EXTREMITIES: No clubbing. No cyanosis. No edema. INTEGUMENT: No rash. No purpura. LABORATORY DATA: 4.9 k, cr .098. wbc 7.6. hct 33. plt 282 IMPRESSION AND PLAN: 1. Abnormal chest radiography, bilateral mild subpleural interstitial reticular opacities/nodules. Possible old viral pneumonia. Cannot rule out active interstitial lung disease syndrome (NSIP), old environmental exposures, other. 2. Febrile syndrome, sepsis. UTI. No rai pneumonia suggested, at most could be a URI 4. Urinary tract infection. 5. Diabetes. 6. Morbid obesity. 7. Hypertension. 8. Mild gastroesophageal reflux disease. 9. Hypoxemia. home oxygen [id number] Mobilize the patient, PT/OT Patient will need outpatient pulmonary function testing History requires intermittent computed tomography evaluations of chest, Outpatient Bronchodilators as needed. Thank you very much, Dr. Amaral for allowing me the chance to participate in the care of Ms. Freedman. Please do not hesitate to contact me if I can help in any way.
[2019-07-25] VITALS: BP 155/80
[2019-07-25] MEDS: CEFEPIME 1GM/NS 0.9% 50 ML 50 ML IV SCH ×2 (01:56→08:56)
[2019-07-25 04:00] VITALS: BP 169/83
--- NOTE | 2019-07-25 07:09 | NUR ---
Walking rounds done. Patient resting comfortably. Shift report given to oncoming nurse.
--- NOTE | 2019-07-25 07:15 | NUR ---
RCD PT AT BED PT IS ALERT AND ORIENTED PT RESTING ON BEDIV PATENT BY SALINE FLUSH BED LOW AND LOCKED CALL LIGHT IN REACH
[2019-07-25] MEDS: INSULIN REGULAR, HUMAN 100 UNIT/1 ML 3ML VIAL SQ SCH (07:30)
[2019-07-25 07:32] VITALS: BP 185/87
[2019-07-25] MEDS: METOPROLOL TARTRATE 50 MG TAB PO SCH (08:57)
[2019-07-25] MEDS: CLOPIDOGREL BISULFATE 75 MG TAB PO SCH (08:58)
[2019-07-25] MEDS: MULTIVITAMINS/MINERALS TAB PO SCH (08:58)
[2019-07-25] MEDS: LISINOPRIL 20 MG TAB PO SCH (08:58)
[2019-07-25] MEDS: INSULIN GLARGINE 100 UNITS/ML VIAL SC SCH (08:59)
[2019-07-25] MEDS: NIFEDIPINE CR 30 MG TAB PO SCH (08:59)
[2019-07-25 09:00] VITALS: BP 185/87
[2019-07-25 09:45] VITALS: BP 160/85
[2019-07-25] MEDS ORDERED: AZITHROMYCIN250 MG PO (10:07)
[2019-07-25] MEDS ORDERED: PROCARDIA XL30 MG (10:36)
[2019-07-25] MEDS ORDERED: CEFDINIR300 MG PO (10:38)
--- NOTE | 2019-07-25 10:55 | NUR ---
Spoke with Herbie at [facility]. States he needs oxygen order and progress notes signed by . BRYCE asked Dr. Amaral to sign order/notes. He refused. [facility] to send to his office. BRYCE informed Herbie and faxed paperwork to Dr. Amaral's office at .
--- NOTE | 2019-07-25 11:06 | NUR ---
PT WENT HOME IN SAFE CONDITION WITH HER
--- NOTE | 2019-07-25 18:01 | NUR ---
PULMONARY MEDICINE DATE OF ENCOUNTER: 07/25/2019 SUBJECTIVE: Home oxygen obtained REVIEW OF SYSTEMS: No epistaxis, no double vision PHYSICAL EXAMINATION: VITAL SIGNS: reviewed per electronic record. HEENT: Normocephalic, atraumatic. GENERAL: comfortable in bed, talking. NECK: Supple. Throat midline. LUNGS: Bilateral air entry, limited effort. CARDIAC: Regular. No murmurs, rubs, or gallops. ABDOMINAL: Soft and nontender. EXTREMITIES: No clubbing. No cyanosis. No edema. INTEGUMENT: No rash. No purpura. LABORATORY DATA: 4.9 k, cr .098. wbc 7.6. hct 33. plt 282 IMPRESSION AND PLAN: 1. Abnormal chest radiography, bilateral mild subpleural interstitial reticular opacities/nodules. Possible old viral pneumonia. Cannot rule out active inters titial lung disease syndrome (NSIP), old environmental exposures, other. 2. Febrile syndrome, sepsis. UTI. No rai pneumonia suggested, at most could be a URI 4. Urinary tract infection. 5. Diabetes. 6. Morbid obesity. 7. Hypertension. 8. Mild gastroesophageal reflux disease. 9. Hypoxemia. home oxygen acquisition done Mobilize the patient, PT/OT Patient will need outpatient pulmonary function testing History requires intermittent computed tomography evaluations of chest, Outpatient Bronchodilators as needed. de/ home Thank you very much, Dr. Amaral for allowing me the chance to participate in the care of Ms. Freedman. Please do not hesitate to contact me if I can help in any way.
--- NOTE | 2019-07-26 10:16 | Discharge Summary ---
FINAL DISCHARGE DIAGNOSES: 1. Sepsis with underlying leukocytosis and fever secondary to urinary tract infection and community-acquired pneumonia. 2. Presumed interstitial lung disease. 3. Type 2 diabetes. 4. Morbid obesity. 5. Hypertension. CONSULTANTS: Pulmonary. PHYSICAL EXAMINATION: VITAL SIGNS: Temperature is 97.5, pulse 90, respiratory rate is 18, blood pressure is 169/83, and pulse ox is 96% on 2 L nasal cannula. LABORATORY FINDINGS: Show white count 7.6, hemoglobin 10.3, hematocrit 33, and platelets of 282. Chemistry; sodium 138, potassium 4.9, chloride 102, bicarb 30, anion gap of 10, BUN is 27, creatinine is 0.98, glucose 107, and calcium is 9. MICROBIOLOGY: Blood cultures were negative. Urine culture positive for E coli. IMAGING STUDIES: CT chest shows hyperinflated lungs. Bilateral lower lobe predominant new peripheral reticulations and scattered ground glass opacities with some areas of intermediate subpleural sparing suggestive of an interstitial lung disease in an NSIP pattern. Mild interstitial pulmonary edema. Multi chamber cardiomegaly. Chest x-ray shows evidence of mild pulmonary edema and cardiomegaly. Patchy opacities in the left lung, most likely represent subsegmental atelectasis. However, superimposed aspiration pneumonia could have a similar appearance. HOSPITAL COURSE: This is an 89-year-old female comes into the emergency room with complaints of cough, congestion, dysuria, and underlying fever. The patient was admitted, treated for underlying sepsis due to underlying urinary tract infection. She also was found to have elevated white count and fever while here in the hospital stay. Imaging studies concerning for underlying community-acquired pneumonia. She maintained on broad-spectrum IV antibiotics. Blood cultures were found to be negative. Urine culture is positive for E coli. The patient was very hypoxic requiring Pulmonary consultation. After further evaluation and management, CT chest was consistent with concerns of underlying interstitial pulmonary disease. Home O2 was arranged for the patient for home. She was advised to follow up with Pulmonary as an outpatient for further evaluation and management of her hypoxia. There was some concern that the patient likely has some interstitial lung disease. The patient was discharged on oral azithromycin and Omnicef to complete her antibiotic course. Otherwise, prior to discharge, she was at baseline with no other complaints. On the day of discharge, vital signs were stable and labs reviewed and stable. The patient seen and evaluated and examined thoroughly on the day of discharge. No other complaints. The patient verbalized understanding and agrees to plan of care to follow up accordingly as an outpatient with the primary care physician in 1 week and a oxygen system tester in 2 weeks' time. The patient was cleared for discharge by Pulmonary. The patient's blood pressure was elevated and medications were adjusted accordingly and added on nifedipine XL while in the hospital stay. MEDICATIONS: See med reconciliation form. DISPOSITION: Home. CONDITION: Stable. DIET: Heart healthy. In the event of any worsening symptoms, the patient was advised to come back to the ED for further evaluation. This discharge summary took greater than 35 minutes. MD MARÍA ELENA Teixeira/DANELLE /[id number]
== END 2019-07-25 11:06 | disposition home or self-care (01) | DRG 871 ==
LOC: ER 19:23 → ERHOLD 22:28 → MED/SURG2 07-20 01:01
PROVIDERS: ADMIT Internal Medicine; ATTEND Internal Medicine
DX: A41.9 Sepsis, unspecified organism (principal); J18.9 Pneumonia, unspecified organism; J96.01 Acute respiratory failure with hypoxia; N30.01 Acute cystitis with hematuria; J84.9 Interstitial pulmonary disease, unspecified; I10 Essential (primary) hypertension; E66.01 Morbid (severe) obesity due to excess calories; E11.9 Type 2 diabetes mellitus without complications; K21.9 Gastro-esophageal reflux disease without esophagitis; E78.5 Hyperlipidemia, unspecified; H54.62 Unqualified visual loss, left eye, normal vision right eye; Z83.3 Family history of diabetes mellitus; Z82.49 Family history of ischemic heart disease and other diseases of the circulatory system; I25.10 Atherosclerotic heart disease of native coronary artery without angina pectoris; Z95.5 Presence of coronary angioplasty implant and graft; Z68.34 Body mass index [BMI] 34.0-34.9, adult; B96.20 Unspecified Escherichia coli [E. coli] as the cause of diseases classified elsewhere
CPT/HCPCS: 36415; 71045; 71250; 80048; 80053; 81001; 82550; 82553; 82784; 82948; 83605; 83690; 83735; 83880; 84484; 85025; 85610; 85730; 86039; 86200; 86431; 87040; 87086; 87186; 93005; 93306; 97139; 99284; J0360; J0456; J0692; J0696; J1650; J1815; J1817; J1940; J7030; J7050

== ENCOUNTER → 2019-08-29 | Outpatient (CLI) | payer MEDICARE ==
[~2019-08-29] MED LIST changes: +AZITHROMYCIN250 MG PO; +CEFDINIR300 MG PO; +PROCARDIA XL30 MG
== END ==
LOC: RAD 10:38
PROVIDERS: ATTEND Internal Medicine Critical Care Medicine
DX: R09.02 Hypoxemia (principal); J84.9 Interstitial pulmonary disease, unspecified; K21.9 Gastro-esophageal reflux disease without esophagitis; Z68.41 Body mass index [BMI] 40.0-44.9, adult
CPT/HCPCS: 93306

== ENCOUNTER → 2019-10-01 | Outpatient (CLI) | payer MEDICARE ==
[~2019-10-01] MED LIST changes: +ALBUTEROL SULF 0.083% NEB SOLN 3 ML NEB ONE
== END ==
LOC: RESP 08:56
PROVIDERS: ATTEND Internal Medicine
DX: R09.02 Hypoxemia (principal); J84.9 Interstitial pulmonary disease, unspecified; K21.9 Gastro-esophageal reflux disease without esophagitis; Z68.41 Body mass index [BMI] 40.0-44.9, adult
CPT/HCPCS: 94060; 94640; 94727; 94729

== ENCOUNTER 2021-01-17 21:06 | Emergency (ER) | payer MEDICARE, OTHER ==
[~2021-01-17] VITALS: Ht 162.6 cm; Wt 91.6 kg
[~2021-01-17 21:06] MED LIST changes: -ALBUTEROL SULF 0.083% NEB SOLN 3 ML NEB ONE
[2021-01-17 22:36] LABS: CLARITY,URINE CLEAR (CLEAR); COLOR,URINE YELLOW (YELLOW); KETONES,URINE NEGATIVE (NEGATIVE); LEUKOCYTE ESTERASE ,URINE NEGATIVE (NEGATIVE); NITRITE,URINE NEGATIVE (NEGATIVE); PROTEIN,URINE DIPSTICK 2+ (NEGATIVE); URINE UROBILINOGEN 0.2 mg/dL (0.2 - 1)
[2021-01-17] MEDS ORDERED: FUROSEMIDE INJ 10 MG/ML 2 ML VIAL IV ONE (23:00)
[2021-01-17] MEDS ORDERED: HYDRALAZINE HCL 20 MG/ML VIAL IV PRN (23:00)
[2021-01-17 23:12] LABS: BASOPHILS # (AUTO) 0.1 (0.0-0.1); BASOPHILS % 0.7 % (0.0-1.0); EOSINOPHILS # (AUTO) 0.2 (0.0-0.4); EOSINOPHILS % 2.7 % (0.0-6.0); HEMOGLOBIN 12.7 g/dL (12.0-16.0); LYMPHOCYTES # (AUTO) 1.4 (1.0-3.2); LYMPHOCYTES % 16.1 % (18.0-39.1); MEAN CORPUSCULAR HEMOGLOBIN 27.7 pg (28-32); MEAN CORPUSCULAR VOLUME 89.5 fL (81-99); MONOCYTES # (AUTO) 0.6 (0.2-0.8); MONOCYTES % 7.3 % (4.4-11.3); NEUTROPHILS # (AUTO) 6.3 (2.1-6.9); PLATELET COUNT 362 x10e3/uL (140-360); RED BLOOD COUNT 4.58 x10e6/uL (3.6-5.1); RED CELL DISTRIBUTION WIDTH 14.6 % (11.7-14.4)
[2021-01-17 23:23] LABS: BACTERIA,URINE MANY /HPF; EPITHELIAL CELLS,URINE FEW /LPF
[2021-01-17 23:26] LABS: INR 1.38; PROTHROMBIN TIME 17.9 seconds (11.9-14.5)
[2021-01-17] MEDS ORDERED: CEFTRIAXONE SOD 1 GM/50 ML BAG IV ONE (23:30)
[2021-01-17 23:36] LABS: ALBUMIN 3.5 g/dL (3.5-5.0); ALBUMIN/GLOBULIN RATIO 0.6 (0.8-2.0); ANION GAP 18.1 mmol/L (8-16); CALCIUM 9.1 mg/dL (8.4-10.2); CREATININE, SERUM 1.07 mg/dL (0.57-1.11); POTASSIUM 5.1 mmol/L (3.5-5.1)
[2021-01-17] MEDS ORDERED: CEFTRIAXONE SOD 1 GM in SODIUM CHLORIDE 0.9% 50ML 50 ML IV ONE (23:45)
[2021-01-18] MEDS ORDERED: CEPHALEXIN500 MG PO (00:02)
[2021-01-18 01:43] VITALS: BP 183/71
[2021-01-18] MEDS ORDERED: HYDRALAZINE HCL 20 MG/ML VIAL IV PRN (03:00)
[2021-01-18] MEDS ORDERED: CEFTRIAXONE SOD 1 GM in SODIUM CHLORIDE 0.9% 50ML 50 ML IV SCH (09:00)
== END 2021-01-18 01:43 | disposition home or self-care (01) ==
LOC: ER 21:16
DX: R42 Dizziness and giddiness (principal); I10 Essential (primary) hypertension; N39.0 Urinary tract infection, site not specified; E11.9 Type 2 diabetes mellitus without complications; K21.9 Gastro-esophageal reflux disease without esophagitis; E78.5 Hyperlipidemia, unspecified; H54.62 Unqualified visual loss, left eye, normal vision right eye
CPT/HCPCS: 36415; 70450; 71045; 80053; 81001; 83880; 84484; 85025; 85610; 87086; 87186; 93005; 99284; J0696; J1940

== ENCOUNTER 2021-02-28 08:43 | Inpatient (IN) | payer MEDICARE, OTHER ==
[~2021-02-28] VITALS: Ht 162.6 cm; Wt 94.4 kg
[~2021-02-28 08:43] MED LIST changes: +CEPHALEXIN500 MG PO
[2021-02-28] MEDS ORDERED: ASPIRIN 81 MG CHEW TAB PO STA (09:05)
[2021-02-28] MEDS ORDERED: NITROGLYCERIN 2% OINT 1 GM PKT TOP ONE (09:15)
[2021-02-28] MEDS ORDERED: MECLIZINE HCL12.5 MG PO (09:32)
[2021-02-28] MEDS ORDERED: LEVOCETIRIZINE D5 MG PO (09:34)
[2021-02-28] MEDS ORDERED: ASPIRIN81 MG PO (09:34)
[2021-02-28] MEDS ORDERED: METFORMIN HCL500 M2 PO (09:34)
[2021-02-28] MEDS ORDERED: METOPROLOL TART50 MG PO (09:34)
[2021-02-28] MEDS ORDERED: OMEPRAZOLE40 MG PO (09:34)
[2021-02-28 09:41] LABS: BASOPHILS # (AUTO) 0.1 (0.0-0.1); BASOPHILS % 0.6 % (0.0-1.0); EOSINOPHILS # (AUTO) 0.3 (0.0-0.4); EOSINOPHILS % 1.9 % (0.0-6.0); HEMATOCRIT 39.3 % (34.2-44.1); HEMOGLOBIN 11.6 g/dL (12.0-16.0); LYMPHOCYTES # (AUTO) 2.1 (1.0-3.2); LYMPHOCYTES % 15.7 % (18.0-39.1); MEAN CORPUSCULAR HGB CONC 29.5 g/dL (31-35); MEAN CORPUSCULAR VOLUME 91.6 fL (81-99); MONOCYTES # (AUTO) 1.2 (0.2-0.8); MONOCYTES % 8.8 % (4.4-11.3); NEUTROPHILS # (AUTO) 9.8 (2.1-6.9); NEUTROPHILS % 72.5 % (38.7-80.0); PLATELET COUNT 365 x10e3/uL (140-360); RED BLOOD COUNT 4.29 x10e6/uL (3.6-5.1); RED CELL DISTRIBUTION WIDTH 15.9 % (11.7-14.4)
[2021-02-28 10:02] LABS: CLARITY,URINE CLEAR (CLEAR); COLOR,URINE YELLOW (YELLOW)
[2021-02-28 10:03] LABS: KETONES,URINE NEGATIVE (NEGATIVE); LEUKOCYTE ESTERASE ,URINE NEGATIVE (NEGATIVE); NITRITE,URINE NEGATIVE (NEGATIVE); PROTEIN,URINE DIPSTICK 2+ (NEGATIVE); URINE UROBILINOGEN 0.2 mg/dL (0.2 - 1)
[2021-02-28 10:04] LABS: BACTERIA,URINE RARE /HPF; EPITHELIAL CELLS,URINE FEW /LPF; RBC,URINE 0-5 /HPF (0-5)
[2021-02-28 10:09] LABS: ALBUMIN 3.4 g/dL (3.5-5.0); ALBUMIN/GLOBULIN RATIO 0.8 (0.8-2.0); ANION GAP 16.7 mmol/L (8-16); CALCIUM 8.6 mg/dL (8.4-10.2); CREATININE, SERUM 1.15 mg/dL (0.57-1.11); MAGNESIUM 1.6 MG/DL (1.3-2.1); POTASSIUM 3.7 mmol/L (3.5-5.1)
[2021-02-28 10:15] LABS: CREATINE KINASE MB 3.4 ng/mL (0-5.0)
[2021-02-28 10:26] LABS: INR 1.11; PROTHROMBIN TIME 14.9 seconds (11.9-14.5)
[2021-02-28 10:27] LABS: PARTIAL THROMBOPLASTIN TIME 28.8 seconds (23.8-35.5)
[2021-02-28] MEDS ORDERED: FUROSEMIDE INJ 10 MG/ML 4 ML VIAL IV ONE (11:00)
[2021-02-28] MEDS ORDERED: ENOXAPARIN SODIUM INJ 100 MG/ML SYR SC ONE (11:00)
[2021-02-28] MEDS ORDERED: HYDRALAZINE HCL 20 MG/ML VIAL IV STA (11:02)
[2021-02-28] MEDS ORDERED: ONDANSETRON HCL INJ 2MG/ML 2ML 2 MG/ML VIAL IV PRN (11:30)
[2021-02-28] MEDS: INSULIN LISPRO 100 UNIT/1 ML 3ML VIAL SQ SCH ×3 (11:30→21:13)
[2021-02-28] MEDS ORDERED: DEXTROSE 50% SYRINGE 50 ML IV PRN (11:30)
[2021-02-28] MEDS ORDERED: MORPHINE SULFATE INJ 2 MG/ML SYR IV PRN (11:30)
[2021-02-28] MEDS: NITROGLYCERIN 2% OINT 1 GM PKT TOP SCH ×2 (11:52→18:00)
[2021-02-28 13:14] VITALS: BP 182/102
[2021-02-28 14:38] VITALS: BP 182/102
[2021-02-28 15:29] LABS: CREATINE KINASE MB 3.5 ng/mL (0-5.0)
[2021-02-28 16:32] VITALS: BP 175/83
[2021-02-28] MEDS: METOPROLOL TARTRATE 50 MG TAB PO SCH (18:00)
[2021-02-28 20:00] VITALS: BP 177/89
[2021-02-28 20:50] VITALS: BP 177/89
[2021-03-01] VITALS (9 sets, daily range): BP systolic 141–188; BP diastolic 68–96
[2021-03-01 00:32] LABS: CREATINE KINASE MB 2.2 ng/mL (0-5.0)
[2021-03-01 05:46] LABS: BASOPHILS % 0.3 % (0.0-1.0); EOSINOPHILS # (AUTO) 0.1 (0.0-0.4); EOSINOPHILS % 0.8 % (0.0-6.0); HEMATOCRIT 34.5 % (34.2-44.1); HEMOGLOBIN 10.7 g/dL (12.0-16.0); LYMPHOCYTES # (AUTO) 1.6 (1.0-3.2); LYMPHOCYTES % 16.1 % (18.0-39.1); MEAN CORPUSCULAR HEMOGLOBIN 27.4 pg (28-32); MEAN CORPUSCULAR VOLUME 88.2 fL (81-99); MONOCYTES # (AUTO) 0.6 (0.2-0.8); MONOCYTES % 6.3 % (4.4-11.3); NEUTROPHILS # (AUTO) 7.5 (2.1-6.9); PLATELET COUNT 321 x10e3/uL (140-360); RED BLOOD COUNT 3.91 x10e6/uL (3.6-5.1); RED CELL DISTRIBUTION WIDTH 15.5 % (11.7-14.4)
[2021-03-01] MEDS: NITROGLYCERIN 2% OINT 1 GM PKT TOP SCH ×2 (06:00)
[2021-03-01 06:07] LABS: ALBUMIN/GLOBULIN RATIO 0.8 (0.8-2.0); ANION GAP 12.7 mmol/L (8-16); CALCIUM 8.4 mg/dL (8.4-10.2); CHOL/HDL RATIO 2.9 (3.0-3.6); CREATININE, SERUM 0.97 mg/dL (0.57-1.11); POTASSIUM 3.7 mmol/L (3.5-5.1)
[2021-03-01 06:32] LABS: CREATINE KINASE MB 1.9 ng/mL (0-5.0)
[2021-03-01] MEDS: INSULIN LISPRO 100 UNIT/1 ML 3ML VIAL SQ SCH ×4 (08:33→21:00)
[2021-03-01] MEDS: METOPROLOL TARTRATE 50 MG TAB PO SCH ×2 (08:35→16:22)
[2021-03-01] MEDS ORDERED: LEVALBUTEROL HCL SOLN NEBU 1.25 MG/3 ML NEB INH PRN (09:00)
[2021-03-01] MEDS ORDERED: HYDRALAZINE HCL 20 MG/ML VIAL IV PRN (09:00)
[2021-03-01] MEDS: ISOSORBIDE MONONITRATE 30 MG TAB CR PO SCH (10:12)
[2021-03-01] MEDS: CLOPIDOGREL BISULFATE 75 MG TAB PO SCH (10:13)
[2021-03-01] MEDS: POTASSIUM CHLORIDE 10MEQ EA PO SCH (10:13)
[2021-03-01] MEDS: PANTOPRAZOLE SOD 40 MG TABEC PO SCH (10:13)
[2021-03-01] MEDS: ASPIRIN 81 MG CHEW TAB PO SCH (10:14)
[2021-03-01] MEDS: FUROSEMIDE INJ 10 MG/ML 4 ML VIAL IV SCH (10:14)
[2021-03-01] MEDS: INSULIN ASPART 70/30 100 UNITS/ML VIAL SC SCH ×2 (11:30→16:28)
[2021-03-01] MEDS ORDERED: ONDANSETRON HCL 4 MG ORAL DISINTEGRATING TAB PO PRN (12:00)
[2021-03-01] MEDS: ENOXAPARIN INJ 80 MG/0.8 ML SYR SC SCH (16:22)
[2021-03-01] MEDS: INSULIN GLARGINE 100 UNITS/ML VIAL SC SCH (21:00)
[2021-03-02] VITALS (8 sets, daily range): BP systolic 94–166; BP diastolic 59–94
[2021-03-02] MEDS: LEVALBUTEROL HCL SOLN NEBU 1.25 MG/3 ML NEB INH SCH ×4 (01:35→19:56)
[2021-03-02 06:16] LABS: BASOPHILS # (AUTO) 0.1 (0.0-0.1); BASOPHILS % 0.7 % (0.0-1.0); EOSINOPHILS # (AUTO) 0.5 (0.0-0.4); EOSINOPHILS % 5.7 % (0.0-6.0); HEMATOCRIT 34.5 % (34.2-44.1); HEMOGLOBIN 10.5 g/dL (12.0-16.0); LYMPHOCYTES # (AUTO) 2.1 (1.0-3.2); LYMPHOCYTES % 25.8 % (18.0-39.1); MEAN CORPUSCULAR HEMOGLOBIN 27.4 pg (28-32); MEAN CORPUSCULAR HGB CONC 30.4 g/dL (31-35); MEAN CORPUSCULAR VOLUME 90.1 fL (81-99); MONOCYTES # (AUTO) 0.8 (0.2-0.8); NEUTROPHILS # (AUTO) 4.7 (2.1-6.9); NEUTROPHILS % 57.3 % (38.7-80.0); PLATELET COUNT 320 x10e3/uL (140-360); RED BLOOD COUNT 3.83 x10e6/uL (3.6-5.1); RED CELL DISTRIBUTION WIDTH 15.8 % (11.7-14.4)
[2021-03-02] MEDS: IPRATROPIUM BROMIDE 0.02% 2.5 ML NEB NEB SCH ×3 (06:30→19:56)
[2021-03-02 06:34] LABS: ANION GAP 11.6 mmol/L (8-16); CALCIUM 8.3 mg/dL (8.4-10.2); POTASSIUM 3.6 mmol/L (3.5-5.1)
[2021-03-02] MEDS: INSULIN LISPRO 100 UNIT/1 ML 3ML VIAL SQ SCH ×4 (07:30→20:53)
[2021-03-02] MEDS: INSULIN ASPART 70/30 100 UNITS/ML VIAL SC SCH ×3 (07:30→16:30)
[2021-03-02] MEDS: FUROSEMIDE INJ 10 MG/ML 4 ML VIAL IV SCH (07:50)
[2021-03-02] MEDS: PANTOPRAZOLE SOD 40 MG TABEC PO SCH (07:50)
[2021-03-02] MEDS: ASPIRIN 81 MG CHEW TAB PO SCH (07:50)
[2021-03-02] MEDS: ISOSORBIDE MONONITRATE 30 MG TAB CR PO SCH (07:51)
[2021-03-02] MEDS: POTASSIUM CHLORIDE 10MEQ EA PO SCH (07:51)
[2021-03-02] MEDS: CLOPIDOGREL BISULFATE 75 MG TAB PO SCH (07:52)
[2021-03-02] MEDS: ENOXAPARIN INJ 80 MG/0.8 ML SYR SC SCH ×2 (07:52→16:28)
[2021-03-02] MEDS: METOPROLOL TARTRATE 50 MG TAB PO SCH ×2 (07:52→16:36)
[2021-03-02] MEDS: INSULIN GLARGINE 100 UNITS/ML VIAL SC SCH (20:53)
[2021-03-03] VITALS (8 sets, daily range): BP systolic 119–164; BP diastolic 62–86
[2021-03-03] MEDS: IPRATROPIUM BROMIDE 0.02% 2.5 ML NEB NEB SCH ×4 (01:15→19:35)
[2021-03-03] MEDS: LEVALBUTEROL HCL SOLN NEBU 1.25 MG/3 ML NEB INH SCH ×4 (01:15→19:35)
[2021-03-03] MEDS: INSULIN LISPRO 100 UNIT/1 ML 3ML VIAL SQ SCH ×4 (07:30→21:25)
[2021-03-03] MEDS: ISOSORBIDE MONONITRATE 30 MG TAB CR PO SCH (09:51)
[2021-03-03] MEDS: ASPIRIN 81 MG CHEW TAB PO SCH (09:51)
[2021-03-03] MEDS: FUROSEMIDE INJ 10 MG/ML 4 ML VIAL IV SCH (09:51)
[2021-03-03] MEDS: PANTOPRAZOLE SOD 40 MG TABEC PO SCH (09:51)
[2021-03-03] MEDS: POTASSIUM CHLORIDE 10MEQ EA PO SCH (09:52)
[2021-03-03] MEDS: ENOXAPARIN INJ 80 MG/0.8 ML SYR SC SCH ×2 (09:52→17:46)
[2021-03-03] MEDS: METOPROLOL TARTRATE 50 MG TAB PO SCH ×2 (09:52→17:46)
[2021-03-03] MEDS: CLOPIDOGREL BISULFATE 75 MG TAB PO SCH (09:52)
[2021-03-03] MEDS ORDERED: Tobramycin LEFT EAR (10:48)
[2021-03-03] MEDS: INSULIN ASPART 70/30 100 UNITS/ML VIAL SC SCH ×3 (11:30→17:38)
[2021-03-03] MEDS ORDERED: WARFARIN SOD 5 MG TAB PO SCH (17:00)
[2021-03-03] MEDS: INSULIN GLARGINE 100 UNITS/ML VIAL SC SCH (21:26)
[2021-03-04] VITALS (8 sets, daily range): BP systolic 114–150; BP diastolic 59–94
[2021-03-04] MEDS: IPRATROPIUM BROMIDE 0.02% 2.5 ML NEB NEB SCH ×4 (01:10→19:15)
[2021-03-04] MEDS: LEVALBUTEROL HCL SOLN NEBU 1.25 MG/3 ML NEB INH SCH ×4 (01:10→19:15)
[2021-03-04] MEDS: INSULIN LISPRO 100 UNIT/1 ML 3ML VIAL SQ SCH ×4 (07:30→21:40)
[2021-03-04 09:39] LABS: PROTHROMBIN TIME 13.8 seconds (11.9-14.5)
[2021-03-04] MEDS: ISOSORBIDE MONONITRATE 30 MG TAB CR PO SCH (09:50)
[2021-03-04] MEDS: FUROSEMIDE INJ 10 MG/ML 4 ML VIAL IV SCH (09:50)
[2021-03-04] MEDS: PANTOPRAZOLE SOD 40 MG TABEC PO SCH (09:50)
[2021-03-04] MEDS: ASPIRIN 81 MG CHEW TAB PO SCH (09:50)
[2021-03-04] MEDS: POTASSIUM CHLORIDE 10MEQ EA PO SCH (09:51)
[2021-03-04] MEDS: ENOXAPARIN INJ 80 MG/0.8 ML SYR SC SCH ×2 (09:51→17:29)
[2021-03-04] MEDS: CLOPIDOGREL BISULFATE 75 MG TAB PO SCH (09:51)
[2021-03-04] MEDS: METOPROLOL TARTRATE 50 MG TAB PO SCH ×2 (09:51→17:29)
[2021-03-04] MEDS ORDERED: MAGNESIUM HYDROXIDE 30 ML UDC PO PRN (11:15)
[2021-03-04] MEDS: SENNA-S TABLET PO SCH ×2 (12:15→17:29)
[2021-03-04] MEDS: INSULIN ASPART 70/30 100 UNITS/ML VIAL SC SCH ×3 (12:43→16:30)
[2021-03-04] MEDS ORDERED: WARFARIN SOD 3 MG TAB PO SCH (17:00)
[2021-03-04] MEDS ORDERED: prednisone (17:41)
[2021-03-04] MEDS: INSULIN GLARGINE 100 UNITS/ML VIAL SC SCH (21:40)
[2021-03-05] VITALS (8 sets, daily range): BP systolic 120–160; BP diastolic 68–85
[2021-03-05] MEDS: LEVALBUTEROL HCL SOLN NEBU 1.25 MG/3 ML NEB INH SCH ×4 (01:30→19:30)
[2021-03-05] MEDS: IPRATROPIUM BROMIDE 0.02% 2.5 ML NEB NEB SCH ×4 (01:30→19:30)
[2021-03-05 06:00] LABS: BASOPHILS # (AUTO) 0.1 (0.0-0.1); BASOPHILS % 0.9 % (0.0-1.0); EOSINOPHILS # (AUTO) 0.5 (0.0-0.4); EOSINOPHILS % 6.7 % (0.0-6.0); HEMATOCRIT 36.8 % (34.2-44.1); HEMOGLOBIN 11.1 g/dL (12.0-16.0); LYMPHOCYTES # (AUTO) 1.5 (1.0-3.2); LYMPHOCYTES % 20.8 % (18.0-39.1); MEAN CORPUSCULAR HEMOGLOBIN 27.2 pg (28-32); MEAN CORPUSCULAR HGB CONC 30.2 g/dL (31-35); MEAN CORPUSCULAR VOLUME 90.2 fL (81-99); MONOCYTES # (AUTO) 0.8 (0.2-0.8); MONOCYTES % 11.7 % (4.4-11.3); NEUTROPHILS # (AUTO) 4.2 (2.1-6.9); NEUTROPHILS % 59.5 % (38.7-80.0); PLATELET COUNT 316 x10e3/uL (140-360); RED BLOOD COUNT 4.08 x10e6/uL (3.6-5.1); RED CELL DISTRIBUTION WIDTH 15.9 % (11.7-14.4)
[2021-03-05 06:25] LABS: ANION GAP 12.5 mmol/L (8-16); CALCIUM 8.6 mg/dL (8.4-10.2); CREATININE, SERUM 1.29 mg/dL (0.57-1.11); POTASSIUM 4.5 mmol/L (3.5-5.1)
[2021-03-05 06:43] LABS: INR 1.29; PROTHROMBIN TIME 16.8 seconds (11.9-14.5)
[2021-03-05] MEDS: INSULIN LISPRO 100 UNIT/1 ML 3ML VIAL SQ SCH ×4 (07:30→20:27)
[2021-03-05] MEDS: PANTOPRAZOLE SOD 40 MG TABEC PO SCH (08:31)
[2021-03-05] MEDS: FUROSEMIDE INJ 10 MG/ML 4 ML VIAL IV SCH (08:32)
[2021-03-05] MEDS: POTASSIUM CHLORIDE 10MEQ EA PO SCH (08:32)
[2021-03-05] MEDS: ISOSORBIDE MONONITRATE 30 MG TAB CR PO SCH (08:33)
[2021-03-05] MEDS: ENOXAPARIN INJ 80 MG/0.8 ML SYR SC SCH ×2 (08:34→15:56)
[2021-03-05] MEDS: METOPROLOL TARTRATE 50 MG TAB PO SCH ×2 (08:34→15:56)
[2021-03-05] MEDS: SENNA-S TABLET PO SCH ×2 (08:34→15:56)
[2021-03-05] MEDS ORDERED: PREDNISOLONE ACE5 M1 OP (10:07)
[2021-03-05] MEDS: INSULIN ASPART 70/30 100 UNITS/ML VIAL SC SCH ×3 (10:45→15:55)
[2021-03-05] MEDS ORDERED: WARFARIN SOD 3 MG TAB PO ONE (11:30)
[2021-03-05] MEDS ORDERED: WARFARIN SOD 1 MG TAB PO ONE (11:30)
[2021-03-05] MEDS: INSULIN GLARGINE 100 UNITS/ML VIAL SC SCH (20:28)
[2021-03-06] VITALS (7 sets, daily range): BP systolic 127–160; BP diastolic 72–91
[2021-03-06] MEDS: IPRATROPIUM BROMIDE 0.02% 2.5 ML NEB NEB SCH ×4 (01:35→20:10)
[2021-03-06] MEDS: LEVALBUTEROL HCL SOLN NEBU 1.25 MG/3 ML NEB INH SCH ×4 (01:35→20:10)
[2021-03-06 05:28] LABS: INR 2.59; PROTHROMBIN TIME 28.5 seconds (11.9-14.5)
[2021-03-06] MEDS: INSULIN ASPART 70/30 100 UNITS/ML VIAL SC SCH ×3 (07:30→16:14)
[2021-03-06] MEDS: INSULIN LISPRO 100 UNIT/1 ML 3ML VIAL SQ SCH ×4 (07:30→21:00)
[2021-03-06] MEDS: ENOXAPARIN INJ 80 MG/0.8 ML SYR SC SCH (09:00)
[2021-03-06] MEDS: FUROSEMIDE INJ 10 MG/ML 4 ML VIAL IV SCH (09:26)
[2021-03-06] MEDS: ISOSORBIDE MONONITRATE 30 MG TAB CR PO SCH (09:26)
[2021-03-06] MEDS: PANTOPRAZOLE SOD 40 MG TABEC PO SCH (09:26)
[2021-03-06] MEDS: POTASSIUM CHLORIDE 10MEQ EA PO SCH (09:27)
[2021-03-06] MEDS: METOPROLOL TARTRATE 50 MG TAB PO SCH ×2 (09:27→16:45)
[2021-03-06] MEDS: SENNA-S TABLET PO SCH ×2 (09:27→16:45)
[2021-03-06] MEDS: ASPIRIN 81 MG ENTERIC COATED PO SCH (10:15)
[2021-03-06] MEDS: INSULIN GLARGINE 100 UNITS/ML VIAL SC SCH (21:00)
[2021-03-07] VITALS: BP 125/65
[2021-03-07 04:00] VITALS: BP 140/68
[2021-03-07 06:52] LABS: INR 2.92; PROTHROMBIN TIME 31.3 seconds (11.9-14.5)
[2021-03-07] MEDS: LEVALBUTEROL HCL SOLN NEBU 1.25 MG/3 ML NEB INH SCH (07:00)
[2021-03-07] MEDS: IPRATROPIUM BROMIDE 0.02% 2.5 ML NEB NEB SCH (07:00)
[2021-03-07] MEDS: INSULIN ASPART 70/30 100 UNITS/ML VIAL SC SCH ×2 (07:30→11:30)
[2021-03-07] MEDS: INSULIN LISPRO 100 UNIT/1 ML 3ML VIAL SQ SCH ×2 (07:30→11:30)
[2021-03-07 08:27] VITALS: BP 125/64
[2021-03-07] MEDS: POTASSIUM CHLORIDE 10MEQ EA PO SCH (08:32)
[2021-03-07] MEDS: FUROSEMIDE INJ 10 MG/ML 4 ML VIAL IV SCH (08:36)
[2021-03-07] MEDS: ASPIRIN 81 MG ENTERIC COATED PO SCH (08:36)
[2021-03-07] MEDS: ISOSORBIDE MONONITRATE 30 MG TAB CR PO SCH (08:37)
[2021-03-07] MEDS: METOPROLOL TARTRATE 50 MG TAB PO SCH (08:38)
[2021-03-07] MEDS: PANTOPRAZOLE SOD 40 MG TABEC PO SCH (08:38)
[2021-03-07] MEDS: SENNA-S TABLET PO SCH (08:38)
[2021-03-07 08:41] VITALS: BP 125/64
[2021-03-07] MEDS ORDERED: LANTUS INJ (10:17)
[2021-03-07] MEDS ORDERED: LASIX40 MG PO (11:13)
[2021-03-07] MEDS ORDERED: K DUR10 MEQ PO (11:13)
[2021-03-07] MEDS ORDERED: WARFARIN SODIUM5 MG PO (11:14)
[2021-03-07] MEDS ORDERED: TRELEGY ELLIPT1 EAC1 IH (11:15)
[2021-03-07] MEDS ORDERED: PROAIR HFA INH8.5 GM IH (11:16)
[2021-03-07] MEDS ORDERED: IMDUR PO (11:18)
[2021-03-07] MEDS ORDERED: SENOKOT-S TABL1 EACH PO (11:18)
== END 2021-03-07 12:20 | disposition home or self-care (01) | DRG 308 ==
LOC: ER 08:58 → ERHOLD 11:16 → MED/SURG2 12:31
PROVIDERS: ADMIT Internal Medicine; ATTEND Internal Medicine
DX: I48.0 Paroxysmal atrial fibrillation (principal); I50.33 Acute on chronic diastolic (congestive) heart failure; I13.0 Hypertensive heart and chronic kidney disease with heart failure and stage 1 through stage 4 chronic kidney disease, or unspecified chronic kidney disease; J84.9 Interstitial pulmonary disease, unspecified; J44.1 Chronic obstructive pulmonary disease with (acute) exacerbation; Z20.822 Contact with and (suspected) exposure to COVID-19; Z79.01 Long term (current) use of anticoagulants; I16.0 Hypertensive urgency; Z68.35 Body mass index [BMI] 35.0-35.9, adult; D64.9 Anemia, unspecified; E66.01 Morbid (severe) obesity due to excess calories; Z99.81 Dependence on supplemental oxygen; R09.02 Hypoxemia; I87.2 Venous insufficiency (chronic) (peripheral); I05.0 Rheumatic mitral stenosis; E11.22 Type 2 diabetes mellitus with diabetic chronic kidney disease; N18.30 Chronic kidney disease, stage 3 unspecified
CPT/HCPCS: 36415; 51700; 70450; 71045; 71250; 80048; 80053; 80061; 81001; 82550; 82553; 82948; 83036; 83735; 83880; 84443; 84484; 85025; 85610; 85730; 87040; 87086; 87186; 93005; 93306; 94640; 96365; 99251; 99284; J1650; J1815; J1940; U0002

== ENCOUNTER 2021-04-01 13:51 | Emergency (ER) | payer OTHER ==
[~2021-04-01] VITALS: Ht 162.6 cm; Wt 94.3 kg
[~2021-04-01 13:51] MED LIST changes: +ASPIRIN81 MG PO; +IMDUR PO; +K DUR10 MEQ PO; +LASIX40 MG PO; +LEVOCETIRIZINE D5 MG PO; +MECLIZINE HCL12.5 MG PO; +METFORMIN HCL500 M2 PO; +OMEPRAZOLE40 MG PO; +PREDNISOLONE ACE5 M1 OP; +PROAIR HFA INH8.5 GM IH; +SENOKOT-S TABL1 EACH PO; +TRELEGY ELLIPT1 EAC1 IH; +Tobramycin LEFT EAR; +WARFARIN SODIUM5 MG PO; +prednisone
[2021-04-01] MEDS ORDERED: SODIUM CHLORIDE 0.9% 500ML 500 ML IV STA (14:20)
[2021-04-01] MEDS ORDERED: ASPIRIN 81 MG CHEW TAB PO ONE (14:30)
[2021-04-01 15:07] LABS: CLARITY,URINE SL CLOUDY (CLEAR); COLOR,URINE YELLOW (YELLOW); KETONES,URINE NEGATIVE (NEGATIVE); LEUKOCYTE ESTERASE ,URINE SMALL (NEGATIVE); NITRITE,URINE NEGATIVE (NEGATIVE); PROTEIN,URINE DIPSTICK NEGATIVE (NEGATIVE); URINE UROBILINOGEN 0.2 mg/dL (0.2 - 1)
[2021-04-01 15:17] LABS: BACTERIA,URINE MANY /HPF; RBC,URINE 0-5 /HPF (0-5)
[2021-04-01 15:18] LABS: BASOPHILS % 0.4 % (0.0-1.0); EOSINOPHILS # (AUTO) 0.4 (0.0-0.4); EOSINOPHILS % 3.6 % (0.0-6.0); HEMATOCRIT 26.2 % (34.2-44.1); HEMOGLOBIN 7.9 g/dL (12.0-16.0); LYMPHOCYTES # (AUTO) 1.7 (1.0-3.2); LYMPHOCYTES % 16.8 % (18.0-39.1); MEAN CORPUSCULAR HEMOGLOBIN 27.7 pg (28-32); MEAN CORPUSCULAR HGB CONC 30.2 g/dL (31-35); MEAN CORPUSCULAR VOLUME 91.9 fL (81-99); MONOCYTES # (AUTO) 0.8 (0.2-0.8); MONOCYTES % 7.7 % (4.4-11.3); NEUTROPHILS # (AUTO) 7.2 (2.1-6.9); NEUTROPHILS % 71.1 % (38.7-80.0); PLATELET COUNT 253 x10e3/uL (140-360); RED BLOOD COUNT 2.85 x10e6/uL (3.6-5.1); RED CELL DISTRIBUTION WIDTH 16.2 % (11.7-14.4)
[2021-04-01 15:41] LABS: ALBUMIN 3.2 g/dL (3.5-5.0); ALBUMIN/GLOBULIN RATIO 0.9 (0.8-2.0); ANION GAP 14.5 mmol/L (8-16); CALCIUM 8.4 mg/dL (8.4-10.2); CREATININE, SERUM 1.28 mg/dL (0.57-1.11); POTASSIUM 4.5 mmol/L (3.5-5.1)
[2021-04-01 15:47] LABS: CREATINE KINASE MB 2.7 ng/mL (0-5.0)
[2021-04-01] MEDS ORDERED: CIPRO500 MG PO (16:00)
== END 2021-04-01 16:11 | disposition home or self-care (01) ==
LOC: ER 14:30
DX: R53.1 Weakness (principal); R04.0 Epistaxis; D64.9 Anemia, unspecified; N39.0 Urinary tract infection, site not specified; E11.65 Type 2 diabetes mellitus with hyperglycemia; I48.91 Unspecified atrial fibrillation; I10 Essential (primary) hypertension; E78.5 Hyperlipidemia, unspecified; K21.9 Gastro-esophageal reflux disease without esophagitis; I25.10 Atherosclerotic heart disease of native coronary artery without angina pectoris
CPT/HCPCS: 36415; 70450; 71045; 80053; 81001; 82550; 82553; 83880; 84484; 85025; 93005; 99284